=== PATIENT | male | born 1980 | race Caucasian/White ===

== ENCOUNTER 2018-06-10 19:45 | Inpatient (IN) | payer SELFPAY ==
[~2018-06-10] VITALS: Ht 170.2 cm; Wt 86.2 kg
[~2018-06-10 19:45] MED LIST: ETOMIDATE 2MG/ML 10ML VIAL IV ONE; SUCCINYLCHOLINE CHLORIDE 200MG/10ML IV ONE
[2018-06-10] MEDS ORDERED: SODIUM CHLORIDE 0.9% 1,000 ML IV ONE ×2 (19:50)
[2018-06-10] MEDS ORDERED: ONDANSETRON HCL 4MG/2ML INJ IV STA (19:50)
[2018-06-10] MEDS ORDERED: SUCCINYLCHOLINE CHLORIDE 200MG/10ML IV ONE (20:00)
[2018-06-10] MEDS ORDERED: MIDAZOLAM HCL 50 MG in DEXTROSE 5% WATER 40 ML IV ONE (20:00)
[2018-06-10] MEDS ORDERED: PROPOFOL 10MG/ML 100ML 100 ML IV ONE (20:00)
[2018-06-10] MEDS ORDERED: FOLIC ACID 1 MG, THIAMINE HCL 100 MG, MVI, ADULT NO.1 10 ML in DEXTROSE 5% WATER 1,000 ML IV ONE ×4 (20:00)
[2018-06-10] MEDS ORDERED: ETOMIDATE 2MG/ML 10ML VIAL IV ONE (20:00)
[2018-06-10] MEDS ORDERED: HYDROCORTISONE SOD SUCCINATE 100 MG/2 ML VIAL IV ONE (20:00)
[2018-06-10] MEDS ORDERED: PIPERACILLIN/TAZ 3.375G PREMIX 50 ML IV ONE (20:15)
[2018-06-10 20:40] LABS: BASOPHILS % 0.8 % (0.0-2.0); EOSINOPHILS % 2.6 % (0.0-5.0); HEMATOCRIT. 46.8 % (42.0-52.0); HEMOGLOBIN. 15.6 g/dL (14.0-18.0); MEAN CORPUSCULAR HEMOGLOBIN 29.8 pg (28.0-32.0); MEAN CORPUSCULAR VOLUME 89.2 fL (80.0-94.0); MEAN PLATELET VOLUME 9.8 fl (7.4-10.4); MONOCYTES % 10.7 % (2.0-8.0); NEUTROPHILS % 59.9 % (40.0-76.0); PLATELET 215 x1000/uL (130-400); RED BLOOD CELL COUNT 5.24 mill/uL (4.7-6.1); RED CELL DISTRIBUTION WIDTH 13.3 % (11.6-14.6)
[2018-06-10 20:46] LABS: CHLORIDE 105 mEq/L (98-107)
[2018-06-10 20:47] LABS: PARTIAL THROMBOPLASTIN TIME 26.3 sec (23.4-31.0); PROTHROMBIN TIME 10.3 sec (9.1-11.1)
[2018-06-10 20:50] LABS: ETHANOL BLOOD < 10 mg/dL
[2018-06-10 20:52] LABS: PHOSPHORUS 1.4 mg/dL (2.5-4.9)
[2018-06-10 21:30] LABS: BG CARBOXYHEMOGLOBIN 1.8 % (0.5-1.5); BG DEOXYHEMOGLOBIN 0.8 % (0.0-5.0); BG FRACTION INSPIRED OXYGEN 100; BG HCO3 ACT 24.4 mmol/L (22.0-26.0); BG METHEMOGLOBIN 0.4 % (0.0-1.5); BG OXYGEN SATURATION 99.2 % (92.0-98.5); BG PCO2 43.2 mmHg (35.0-45.0); BG PEEP (cmH2O) 0 cmH2O; BG PIP 28 cmH2O; BG PO2 253.2 mmHg (75.0-100.0); BG SAMPLE SITE LEFT RADIAL; BG TIDAL VOLUME(mL) 500 mL; BG TOTAL HEMOGLOBIN 13.8 g/dL (12.0-18.0); BG VENT MODE VENT - A/C; BG VENT RATE 14 set
[2018-06-10] MEDS ORDERED: IPRATROPIUM/ALBUTEROL 0.5-3(2.5)MG/3ML NEB HHN PRN (21:30)
[2018-06-10] MEDS ORDERED: VECURONIUM BROMIDE 10 MG/VIAL IV ONE ×2 (22:15)
[2018-06-10 23:18] VITALS: BP 137/67
[2018-06-10 23:20] VITALS: BP 105/43
[2018-06-10 23:30] VITALS: BP 160/87
[2018-06-10 23:33] LABS: CLARITY URINE CLEAR (CLEAR); COLOR URINE YELLOW (YELLOW); KETONES URINE TRACE (NEGATIVE); LEUKOCYTE ESTERASE URINE NEGATIVE (NEGATIVE); NITRITE URINE NEGATIVE (NEGATIVE); OCCULT BLOOD URINE NEGATIVE (NEGATIVE); PROTEIN URINE 1+ (NEGATIVE); SPECIFIC GRAVITY URINE 1.019 (1.005-1.030)
[2018-06-10 23:45] VITALS: BP 136/63
[2018-06-10 23:58] LABS: *AMPHETAMINES SCREEN URINE PRESUMTIVE POSITIVE (NEGATIVE); *BARBITURATES SCREEN URINE NEGATIVE (NEGATIVE)
[2018-06-10 23:59] LABS: *BENZODIAZEPINES SCREEN URINE NEGATIVE (NEGATIVE); *COCAINE SCREEN URINE NEGATIVE (NEGATIVE); METHADONE URINE SCREEN NEGATIVE (NEGATIVE); OPIATES URINE SCREEN NEGATIVE (NEGATIVE); PHENCYCLIDINE URINE SCREEN NEGATIVE (NEGATIVE)
[2018-06-11] VITALS (44 sets, daily range): BP systolic 87–131; BP diastolic 35–63
[2018-06-11 00:01] LABS: CANNABINOID URINE SCREEN NEGATIVE (NEGATIVE)
[2018-06-11] MEDS: PROPOFOL 10MG/ML 100ML 100 ML IV PRN ×6 (00:54→22:38)
[2018-06-11] MEDS: IPRATROPIUM/ALBUTEROL 0.5-3(2.5)MG/3ML NEB HHN SCH ×4 (02:01→20:23)
[2018-06-11] MEDS: PIPERACILLIN/TAZ 3.375G PREMIX 50 ML IV SCH ×4 (04:39→23:08)
[2018-06-11 05:36] LABS: BASOPHILS % 0.4 % (0.0-2.0); EOSINOPHILS % 0.1 % (0.0-5.0); HEMATOCRIT. 44.2 % (42.0-52.0); HEMOGLOBIN. 14.8 g/dL (14.0-18.0); INR 1.1; LYMPHOCYTES % 11.1 % (20.0-50.0); MEAN CORPUSCULAR HEMOGLOBIN 29.7 pg (28.0-32.0); MEAN CORPUSCULAR VOLUME 88.9 fL (80.0-94.0); MONOCYTES % 7.8 % (2.0-8.0); NEUTROPHILS % 80.6 % (40.0-76.0); PLATELET 203 x1000/uL (130-400); PROTHROMBIN TIME 10.8 sec (9.1-11.1); RED BLOOD CELL COUNT 4.97 mill/uL (4.7-6.1); RED CELL DISTRIBUTION WIDTH 13.3 % (11.6-14.6)
[2018-06-11 05:38] LABS: CHLORIDE 109 mEq/L (98-107)
[2018-06-11 05:48] LABS: CREATINE KINASE 430 IU/L (39-308)
[2018-06-11 05:57] LABS: PHOSPHORUS 1.9 mg/dL (2.5-4.9)
[2018-06-11 06:13] LABS: HEPATITIS B SURFACE ANTIGEN NEGATIVE
[2018-06-11 06:43] LABS: HEPATITIS A AB IGM NEGATIVE (NEGATIVE)
[2018-06-11 08:04] LABS: BG BASE EXCESS -0.7 mmol/L (-2.0-2.0); BG CARBOXYHEMOGLOBIN 0.8 % (0.5-1.5); BG DEOXYHEMOGLOBIN 0.6 % (0.0-5.0); BG FRACTION INSPIRED OXYGEN 75; BG HCO3 ACT 24.7 mmol/L (22.0-26.0); BG METHEMOGLOBIN 0.2 % (0.0-1.5); BG OXYGEN SATURATION 99.4 % (92.0-98.5); BG OXYHEMOGLOBIN 98.4 % (94.0-97.0); BG PCO2 43.4 mmHg (35.0-45.0); BG PH 7.373 (7.350-7.450); BG PO2 269.3 mmHg (75.0-100.0); BG SAMPLE SITE RIGHT BRACHIAL; BG TIDAL VOLUME(mL) 500 mL; BG TOTAL HEMOGLOBIN 14.8 g/dL (12.0-18.0); BG VENT MODE VENT - A/C; BG VENT RATE 14 set
[2018-06-11] MEDS: PANTOPRAZOLE SODIUM 40 MG/VIAL IV SCH (08:20)
[2018-06-11] MEDS: SODIUM CHLORIDE 0.45% 1,000 ML IV SCH ×2 (08:20→20:06)
[2018-06-11] MEDS ORDERED: POTASSIUM PHOS,M-BASIC-D-BASIC 20 MMOL in DEXT 5% WATER 243.3333 ML IV ONE (09:00)
[2018-06-11] MEDS ORDERED: LACTULOSE 20G/30ML UDC PO NR (09:15)
[2018-06-11] MEDS: ENOXAPARIN 80MG/0.8ML SYR SUBCUT SCH ×2 (09:41→20:04)
[2018-06-11] MEDS ORDERED: LEVETIRACETAM 500 MG in SODIUM CHLORIDE 0.9% 100 ML IV SCH (12:00)
[2018-06-11] MEDS: LORAZEPAM 2MG/ML CPJ IV PRN (17:27)
[2018-06-12] VITALS (28 sets, daily range): BP systolic 97–143; BP diastolic 45–93
[2018-06-12] MEDS: IPRATROPIUM/ALBUTEROL 0.5-3(2.5)MG/3ML NEB HHN SCH ×2 (02:21→08:32)
[2018-06-12] MEDS: SODIUM CHLORIDE 0.45% 1,000 ML IV SCH ×2 (03:53→06:47)
[2018-06-12] MEDS: PROPOFOL 10MG/ML 100ML 100 ML IV PRN ×2 (04:29→06:51)
[2018-06-12] MEDS: PIPERACILLIN/TAZ 3.375G PREMIX 50 ML IV SCH ×2 (05:00→12:20)
[2018-06-12 05:17] LABS: BASOPHILS % 0.7 % (0.0-2.0); EOSINOPHILS % 1.8 % (0.0-5.0); HEMATOCRIT. 45.5 % (42.0-52.0); HEMOGLOBIN. 15.2 g/dL (14.0-18.0); LYMPHOCYTES % 20.5 % (20.0-50.0); MEAN CORPUSCULAR HEMOGLOBIN 30.1 pg (28.0-32.0); MEAN CORPUSCULAR VOLUME 89.9 fL (80.0-94.0); MEAN PLATELET VOLUME 10.5 fl (7.4-10.4); MONOCYTES % 10.3 % (2.0-8.0); NEUTROPHILS % 66.7 % (40.0-76.0); PLATELET 161 x1000/uL (130-400); RED BLOOD CELL COUNT 5.06 mill/uL (4.7-6.1); RED CELL DISTRIBUTION WIDTH 13.6 % (11.6-14.6)
[2018-06-12 05:22] LABS: CHLORIDE 109 mEq/L (98-107)
[2018-06-12 05:27] LABS: PHOSPHORUS 3.6 mg/dL (2.5-4.9)
[2018-06-12 07:50] LABS: BG BASE EXCESS 0.9 mmol/L (-2.0-2.0); BG CARBOXYHEMOGLOBIN 0.5 % (0.5-1.5); BG DEOXYHEMOGLOBIN 3.2 % (0.0-5.0); BG FRACTION INSPIRED OXYGEN 40; BG METHEMOGLOBIN 0.3 % (0.0-1.5); BG OXYGEN SATURATION 96.8 % (92.0-98.5); BG PH 7.399 (7.350-7.450); BG PO2 89.7 mmHg (75.0-100.0); BG SAMPLE SITE RIGHT RADIAL; BG TIDAL VOLUME(mL) 500 mL; BG TOTAL HEMOGLOBIN 13.8 g/dL (12.0-18.0); BG VENT MODE VENT - A/C; BG VENT RATE 14 set
[2018-06-12] MEDS: PANTOPRAZOLE SODIUM 40 MG/VIAL IV SCH (08:33)
[2018-06-12] MEDS: ENOXAPARIN 80MG/0.8ML SYR SUBCUT SCH (08:33)
[2018-06-12] MEDS ORDERED: LACTULOSE 20G/30ML UDC PO NR (10:00)
[2018-06-12 11:26] LABS: BG BASE EXCESS 0.4 mmol/L (-2.0-2.0); BG CARBOXYHEMOGLOBIN 0.9 % (0.5-1.5); BG DEOXYHEMOGLOBIN 3.5 % (0.0-5.0); BG FRACTION INSPIRED OXYGEN 40; BG HCO3 ACT 25.3 mmol/L (22.0-26.0); BG METHEMOGLOBIN 0.3 % (0.0-1.5); BG OXYGEN SATURATION 96.5 % (92.0-98.5); BG OXYHEMOGLOBIN 95.3 % (94.0-97.0); BG PCO2 41.7 mmHg (35.0-45.0); BG PO2 84.1 mmHg (75.0-100.0); BG PRESSURE SUPPORT 8; BG SAMPLE SITE RIGHT BRACHIAL; BG TOTAL HEMOGLOBIN 14.3 g/dL (12.0-18.0); BG VENT MODE VENT - A/C
[2018-06-12] MEDS: LORAZEPAM 2MG/ML CPJ IV PRN (12:17)
== END 2018-06-12 15:10 | disposition left against medical advice (07) | DRG 816 ==
LOC: EDBEDREQ 20:24 → EDBEDREQTM 20:24 → ENRESERV 20:50 → ER 23:50 → CVICU 23:59
PROVIDERS: ADMIT Internal Medicine; ATTEND Internal Medicine
PROC: 0BH17EZ Insertion of Endotracheal Airway into Trachea, Via Natural or Artificial Opening (ICD-10-PCS; principal; 2018-06-10)
PROC: 5A1945Z Respiratory Ventilation, 24-96 Consecutive Hours (ICD-10-PCS; 2018-06-10)
DX: T52 Toxic effect of organic solvents (principal); J96.00 Acute respiratory failure, unspecified whether with hypoxia or hypercapnia; J69.0 Pneumonitis due to inhalation of food and vomit; G92 Toxic encephalopathy; E72.20 Disorder of urea cycle metabolism, unspecified; I82.412 Acute embolism and thrombosis of left femoral vein; Z53.21 Procedure and treatment not carried out due to patient leaving prior to being seen by health care provider; F15.10 Other stimulant abuse, uncomplicated; F32.9 Major depressive disorder, single episode, unspecified; E83.39 Other disorders of phosphorus metabolism; Z78.1 Physical restraint status; Y92.89 Other specified places as the place of occurrence of the external cause
CPT/HCPCS: 31500; 36415; 36600; 71045; 78580; 80048; 80076; 80305; 80307; 80329; 82010; 82140; 82375; 82550; 82805; 83036; 83605; 83735; 83880; 83930; 83935; 84100; 84145; 84478; 84484; 86705; 86709; 86803; 86850; 86900; 87070; 87340; 92610; 93005; 93970; 94002; 94640; 96361; 96365; 96366; 96368; 96375; 99291; C9113; G0482; J0330; J1650; J1720; J1953; J2060; J2250; J2405; J2543; J2704; J3411; J3490; J7030; J7050; J7060; J7070; J7620

== ENCOUNTER 2018-06-18 11:56 | Emergency (ER) | payer SELFPAY ==
[~2018-06-18] VITALS: Ht 165.1 cm; Wt 82.0 kg
== END 2018-06-18 15:00 | disposition left against medical advice (07) ==
LOC: ER 12:39
DX: Z53.21 Procedure and treatment not carried out due to patient leaving prior to being seen by health care provider (principal)